=== PATIENT | male | born 1975 | race Hispanic/Latino ===

== ENCOUNTER → 2020-11-25 10:27 | Outpatient (CLI) | payer OTHER, SELFPAY ==
[2020-11-25 11:06] LABS: Add Manual Diff / Slide Review NO; Basophils Absolute Auto 100 /uL (0-100); Eosinophils Absolute Auto 300 /uL (0-450); Eosinophils Percent Auto 3.4 % (2-4); Hematocrit 45.6 % (41-53); Hemoglobin 15.9 g/dL (13.5-17.5); Lymphocytes Absolute Auto 3000 /uL (1100-4500); Mean Corpuscular Hemoglobin 33.7 PG (26-34); Mean Corpuscular Volume 96.2 fL (80-100); Monocytes Absolute Auto 600 /uL (0-900); Monocytes Percent Auto 6.8 % (3-14); Neutrophils Absolute Auto 4700 /uL (1500-7000); Neutrophils Percent Auto 53.8 % (50-75); Platelet Count 327 X10^3/uL (150-400); Red Blood Cell Count 4.74 X10^6/uL (4.5-5.9); Red Cell Distribution Width 12.5 % (11.6-14.8); White Blood Cell Count 8.7 X10^3/uL (4.5-11.0)
[2020-11-25 11:16] LABS: Alanine Aminotransferase 45 IU/L (<50); Albumin 4.6 g/dL (3.5-5.0); Albumin Globulin Ratio 1.2 (1.0-2.8); Alkaline Phosphatase 122 U/L (38-126); Aspartate Aminotransferase 33 IU/L (17-59); BUN Creatinine Ratio 21.4 (6-22); Bilirubin Total 0.4 mg/dL (0.2-1.3); Blood Urea Nitrogen 21 mg/dL (9-20); C-Reactive Protein Quant 0.8 mg/dL (<1.0); Calcium 9.8 mg/dL (8.4-10.2); Carbon Dioxide 26 mmol/L (22-32); Chloride 105 mmol/L (98-107); Estimated Glomerular Filt Rate > 60.0 mL/min (>60); Glucose 119 mg/dL (70-100); HEMOLYSIS < 15 (0-50); Sodium 140 mmol/L (137-145); Total Protein 8.6 g/dL (6.3-8.2)
[2020-11-25 11:26] LABS: Erythrocyte Sedimentation Rate 6 MM/HR (0-15)
[2020-11-30 04:36] LABS: Percent Free Testosterone 2.84 % (1.50-4.20); Testosterone Free 10.14 ng/dL (5.00-21.00)
== END ==
PROVIDERS: PCP Internal Medicine; Referring Provider Internal Medicine; Visit Provider Internal Medicine
DX: G89.29 Other chronic pain (principal); M54.5 Low back pain; R53.81 Other malaise; R53.83 Other fatigue
CPT/HCPCS: 36415; 80053; 84402; 84403; 84443; 85025; 85651; 86140

== ENCOUNTER → 2022-11-10 12:00 | Outpatient (CLI) | payer OTHER, SELFPAY ==
[2022-11-10 13:07] LABS: Cholesterol 214 mg/dL (140-199); HDL Cholesterol 44 mg/dL (40-60); LDL Cholesterol Calculated 138 mg/dL (<100); Triglycerides 159 mg/dL (35-150)
== END ==
PROVIDERS: PCP Internal Medicine; Referring Provider Internal Medicine; Visit Provider Internal Medicine
DX: Z13.6 Encounter for screening for cardiovascular disorders (principal)
CPT/HCPCS: 36415; 80061

== ENCOUNTER → 2022-11-19 16:18 | Outpatient (CLI) | payer OTHER, SELFPAY ==
[2022-11-19 18:11] LABS: C-Reactive Protein Quant 0.7 mg/dL (<1.0); Creatine Kinase 90 U/L (55-170)
[2022-11-19 18:23] LABS: Erythrocyte Sedimentation Rate 6 MM/HR (0-15)
[2022-11-19 18:42] LABS: TSH w/ Reflex to FT4 2.63 uIU/mL (0.47-4.68)
[2022-11-27 11:23] LABS: Percent Free Testosterone 2.28 % (1.50-4.20); Testosterone Free 5.68 ng/dL (5.00-21.00)
== END ==
PROVIDERS: PCP Internal Medicine; Referring Provider Internal Medicine; Visit Provider Internal Medicine
DX: M79.10 Myalgia, unspecified site (principal); R53.1 Weakness; R53.83 Other fatigue
CPT/HCPCS: 36415; 82550; 84402; 84403; 84443; 85651; 86140

== ENCOUNTER → 2022-12-05 16:00 | Outpatient (CLI) | payer OTHER, SELFPAY ==
[2022-12-21 09:36] LABS: Percent Free Testosterone 1.55 % (1.50-4.20); Testosterone Free 5.94 ng/dL (5.00-21.00)
== END ==
PROVIDERS: PCP Internal Medicine; Referring Provider Internal Medicine; Visit Provider Internal Medicine
DX: E29.1 Testicular hypofunction (principal)
CPT/HCPCS: 36415; 84402; 84403